=== PATIENT | female | born 1985 | race Hispanic/Latino ===

== ENCOUNTER 2016-06-22 11:43 | Emergency (ER) | payer SELFPAY ==
[~2016-06-22] VITALS: Ht 152.4 cm; Wt 73.9 kg
[~2016-06-22 11:43] MED LIST: CYCL10TA45 PO; HYOS0.1217 PO; NAPR-243 PO; NAPR250T2 PO; NAPR500T3 PO; OMEP20CA12 PO; ONDA-42 SL; PNT40TEC PO; TORADOL 10 MG PO; TRAM-42 PO
[2016-06-22] MEDS ORDERED: GABA-488 (12:23)
[2016-06-22 12:28] LABS: BILIRUBIN,URINE NEGATIVE (NEGATIVE); KETONES,URINE NEGATIVE (NEGATIVE); LEUKOCYTE ESTERASE ,URINE NEGATIVE (NEGATIVE); NITRITE,URINE NEGATIVE (NEGATIVE); PH,URINE 8 (5-9); PROTEIN,URINE NEGATIVE (NEGATIVE); UROBILINOGEN,URINE NORMAL (NORMAL)
[2016-06-22 12:36] LABS: SQUAMOUS EPITHELIAL CELL,UR >50 /HPF
[2016-06-22] MEDS ORDERED: NS 100 ML (IVPB) BAG IV ONE (12:45)
[2016-06-22] MEDS ORDERED: IOHEXOL 350 MG/ML 100 ML (OMNIPAQUE 350) VIAL IV ONE (12:45)
[2016-06-22] MEDS ORDERED: KETOROLAC 30 MG/ML VIAL IV ONE (12:45)
[2016-06-22 13:03] LABS: BASOPHILS % (AUTO) 1 % (0-10); EOSINOPHILS # (AUTO) 0.2 10^3/uL (0.0-0.3); EOSINOPHILS % (AUTO) 2 % (0-10); LYMPHOCYTES # (AUTO) 3.4 X 10^3 (1.0-4.0); LYMPHOCYTES % (AUTO) 41 % (12-44); MEAN CORPUSCULAR HEMOGLOBIN 28 PG (25-34); MEAN CORPUSCULAR HGB CONC 34 G/DL (32-36); MEAN CORPUSCULAR VOLUME 82 FL (80-99); MEAN PLATELET VOLUME 10.1 FL (7.4-10.4); MONOCYTES # (AUTO) 0.6 X 10^3 (0.0-1.0); MONOCYTES % (AUTO) 8 % (0-12); NEUTROPHILS % (AUTO) 49 % (42-75); PLATELET COUNT 292 10^3/uL (130-400); RED BLOOD COUNT 5.41 10^6/uL (4.35-5.85); RED CELL DISTRIBUTION WIDTH 12.7 % (10.0-14.5); WHITE BLOOD COUNT 8.2 10^3/uL (4.3-11.0)
--- NOTE | 2016-06-22 13:05 | ED Abdominal Pain ---
General Chief Complaint: -Female Stated Complaint: LOWER LEFT ABD PAIN Nursing Triage Note: AMB TO ROOM C/O L LOWER QUAD PAIN WITH C/O URINARY BURNING. 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[employer]) Exam Limitations: Language Barrier (PT SPEAKS NO CHADIAN) History of Present Illness Time Seen By Provider: 12:10 Initial Comments C/O PAIN TO ENTIRE LEFT ABDOMEN AND LEFT FLANK SINCE 0300 YESTERDAY MORNING PAIN COMES AND GOES AND IS MOSTLY WITH EATING OR DRINKING ANYTHING--NO PAIN NOW ATE CHICKEN SOUP AND WATER AT 0800 THIS AM + NAUSEA, NO VOMITING HAD A NORMAL BM AT 0700 TODAY C/O BURNING ON URINATION, URGENCY, FREQUENCY, SMALL AMOUNTS, SENSATION OF INCOMPLETE EMPTYING NO FEVER TOOK IBUPROFEN THIS AM WITHOUT RELIEF IS UNCLEAR IF SHE HAS HAD THIS PROBLEM IN THE PAST PT TAKES GABAPENTIN AND ANOTHER UNKNOWN MEDICATION FOR PAIN--IS UNCLEAR WHAT SHE TAKES THEM FOR, BUT RELATES THAT IS FOR ABDOMINAL PAIN HERE FOR WORK NOTE--DIDN'T GO TO WORK YESTERDAY OR TODAY PCP: KEVYN--HAS AN APPOINTMENT ON Monday06/27/16 FOR THIS PROBLEM Allergies and Home Medications Allergies Coded Allergies: Penicillins (Verified Allergy, Mild, 02/10/13) Home Medications Gabapentin 300 Mg Capsule, #90 (Reported) Review of Systems Constitutional: no symptoms reported Respiratory: No Symptoms Reported Cardiovascular: No Symptoms Reported Gastrointestinal: See HPI, Abdominal Pain, Denies Constipated, Denies Diarrhea , Nausea, Denies Vomiting Genitourinary: See HPI, Burning, Frequency, Flank Pain, Pain, Urgency Musculoskeletal: see HPI, back pain Skin: no symptoms reported Psychiatric/Neurological: No Symptoms Reported Endocrine: No Symptoms Reported Hematologic/Lymphatic: No Symptoms Reported Past Ixeacym-Betrvt-Nnzpxl Hx Patient Social History Alcohol Use: Denies Use Recreational Drug Use: No Smoking Status: Never a Smoker Recent Foreign Travel: No Contact w/Someone Who Travel: No Recent Infectious Disease Expo: No Surgeries HX Surgeries: Yes Surgeries: Hysterectomy Respiratory Hx Respiratory Disorders: No Cardiovascular Hx Cardiac Disorders: Yes Cardiac Disorders: High Cholesterol Neurological Hx Neurological Disorders: No Reproductive System Sexually Transmitted Disease: No 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 Genitourinary Hx Genitourinary Disorders: No Gastrointestinal Hx Gastrointestinal Disorders: Yes ("FATTY LIVER") Gastrointestinal Disorders: Liver Disease/Jaundice Musculoskeletal Hx Musculoskeletal Disorders: No Endocrine Hx Endocrine Disorders: No HEENT HX ENT Disorders: No Cancer Hx Cancer: No Psychosocial Hx Psychiatric Problems: No Integumentary HX Skin/Integumentary Disorder: No Blood Transfusions Hx Blood Disorders: No Physical Exam Vital Signs VS - Last 72 Hours, by Label 06/22/16 11:50 Temp 98.7 Pulse 72 Resp 18 B/P (MAP) 125/89 Pulse Ox 98 Capillary Refill : Less Than 3 Seconds General Appearance: WD/WN, no apparent distress HEENT: PERRL/EOMI, No scleral icterus (R), No scleral icterus (L) Neck: normal inspection Respiratory: normal breath sounds, no respiratory distress, no accessory muscle use Cardiovascular: normal peripheral pulses, regular rate, rhythm, no edema, no JVD, no murmur Gastrointestinal: normal bowel sounds, soft, no organomegaly, no pulsatile mass , No distended, No guarding, No rebound, tenderness (DIFFUSE LEFT SIDED ABDOMINAL TENDERNESS AND DIFFUSE LEFT FLANK TENDERNESS) Progress/Results/Core Measures Results/Orders Lab Results Laboratory Tests Test 06/22/16 12:02 06/22/16 12:53 Range/Units Urine Color YELLOW Urine Clarity CLEAR Urine pH 8 5-9 Urine Specific [place] 1.015 L 1.016-1.022 Urine Protein NEGATIVE NEGATIVE Urine Glucose (UA) NEGATIVE NEGATIVE Urine Ketones NEGATIVE NEGATIVE Urine Nitrite NEGATIVE NEGATIVE Urine Bilirubin NEGATIVE NEGATIVE Urine Urobilinogen NORMAL NORMAL MG/DL Urine Leukocyte Esterase NEGATIVE NEGATIVE Urine RBC (Auto) NEGATIVE NEGATIVE Urine RBC NONE /HPF Urine WBC NONE /HPF Urine Squamous Epithelial Cells >50 H /HPF Urine Crystals NONE /LPF Urine Bacteria NEGATIVE /HPF Urine Casts NONE /LPF Urine Mucus NEGATIVE /LPF Urine Culture Indicated NO White Blood Count 8.2 4.3-11.0 10^3/uL Red Blood Count 5.41 4.35-5.85 10^6/uL Hemoglobin 15.1 11.5-16.0 G/DL Hematocrit 44 35-52 % Mean Corpuscular Volume 82 80-99 FL Mean Corpuscular Hemoglobin 28 25-34 PG Mean Corpuscular Hemoglobin Concent 34 32-36 G/DL Red Cell Distribution Width 12.7 10.0-14.5 % Platelet Count 292 130-400 10^3/uL Mean Platelet Volume 10.1 7.4-10.4 FL Neutrophils (%) (Auto) 49 42-75 % Lymphocytes (%) (Auto) 41 12-44 % Monocytes (%) (Auto) 8 0-12 % Eosinophils (%) (Auto) 2 0-10 % Basophils (%) (Auto) 1 0-10 % Neutrophils # (Auto) 4.0 1.8-7.8 X 10^3 Lymphocytes # (Auto) 3.4 1.0-4.0 X 10^3 Monocytes # (Auto) 0.6 0.0-1.0 X 10^3 Eosinophils # (Auto) 0.2 0.0-0.3 10^3/uL Basophils # (Auto) 0.0 0.0-0.1 10^3/uL Sodium Level 141 135-145 MMOL/L Potassium Level 3.7 3.6-5.0 MMOL/L Chloride Level 104 98-107 MMOL/L Carbon Dioxide Level 27 21-32 MMOL/L Anion Gap 10 5-14 MMOL/L Blood Urea Nitrogen 12 7-18 MG/DL Creatinine 0.74 0.60-1.30 MG/DL Estimat Glomerular Filtration Rate > 60 BUN/Creatinine Ratio 16 Glucose Level 88 70-105 MG/DL Calcium Level 9.4 8.5-10.1 MG/DL Total Bilirubin 0.6 0.1-1.0 MG/DL Aspartate Amino Transf (AST/SGOT) 50 H 5-34 U/L Alanine Aminotransferase (ALT/SGPT) 105 H 0-55 U/L Alkaline Phosphatase 86 40-136 U/L Total Protein 7.6 6.4-8.2 G/DL Albumin 4.4 3.2-4.5 G/DL Amylase Level 69 25-125 U/L Lipase 45 8-78 U/L My Orders Orders - ALBERT ROCKWELL DO Ua Culture If Indicated (06/22/16 12:09) Saline Lock/Iv-Start (06/22/16 12:41) Ct Abdomen/Pelvis W (06/22/16 12:41) Amylase (06/22/16 12:41) Cbc With Automated Diff (06/22/16 12:41) Comprehensive Metabolic Panel (06/22/16 12:41) Lipase (06/22/16 12:41) Acute Abd Series (06/22/16 12:41) Ketorolac Injection (Toradol Injection) (06/22/16 12:45) Iohexol Injection (Omnipaque 350 Mg/Ml 1 (06/22/16 12:45) Ns (Ivpb) (Sodium Chloride 0.9% Ivpb Bag (06/22/16 12:45) Medications Given in ED Current Medications Medications Dose Ordered Sig/Mathieu Route Start Time Stop Time Status Last Admin Dose Admin Iohexol 100 ml ONCE ONCE IV 06/22/16 12:45 06/22/16 12:46 DC 06/22/16 13:27 100 ML Ketorolac Tromethamine 30 mg ONCE ONCE IV 06/22/16 12:45 06/22/16 12:46 DC 06/22/16 13:04 30 MG Sodium Chloride 100 ml ONCE ONCE IV 06/22/16 12:45 06/22/16 12:46 DC 06/22/16 13:27 80 ML Vital Signs/I&O Vital Sign - Last 12Hours 06/22/16 11:50 Temp 98.7 Pulse 72 Resp 18 B/P (MAP) 125/89 Pulse Ox 98 Blood Pressure Mean: 101 Diagnostic Imaging Comments ACUTE ABDOMEN XRAYS--MILD TO MODERATE FECAL LOADING, MILD HEPATOMEGALY CT ABDOMEN/PELVIES--NO ACUTE PROCESS, LEFT ADNEXAL OVARIAL FOLLICLE, HEPATIC STEATOSIS PER RADIOLOGIST REPORT @ 1430 Reviewed: Reviewed by Me Departure Impression Impression: Primary Impression: Left sided abdominal pain of unknown cause Additional Impressions: LEFT FLANK PAIN OF UNKNOWN CAUSE Constipation Fatty liver Disposition: 01 HOME, SELF-CARE Condition: Stable Departure-Patient Inst. Referrals: [facility] (PCP/Family) Primary Care Physician Patient Instructions: Acute Abdomen (Belly Pain), Adult (DC), Constipation, Adult (DC), Flank Pain (DC), High Fiber Diet, Nonalcoholic Fatty Liver Disease ( DC) Add. Discharge Instructions: MOIST HEAT TO SORE AREA AT 20 MINUTE INTERVALS CLEAR LIQUIDS UNTIL YOU HAVE A LARGE BOWEL MOVEMENT--NO FOOD FOLLOW UP WITH [facility] IN 2-3 DAYS IF NO BETTER All discharge instructions reviewed with patient and/or family. Voiced understanding. Scripts Orphenadrine Citrate (Orphenadrine Citrate) 100 Mg Tablet.er 100 MG PO BID, #14 TAB FOR MUSCLE SPASMS Prov: ALBERT ROCKWELL DO 06/22/16 Ketorolac Tromethamine (Ketorolac Tromethamine) 10 Mg Tablet 10 MG PO Q6H for Pain, #15 TAB Prov: ALBERT ROCKWELL DO 06/22/16 Work/School Note: Work Release Form Date Seen in the Emergency Department: June 22, 2016 Return to Work: June 23, 2016 Restrictions: No Restrictions ALBERT ROCKWELL DO June 22, 2016 13:05
[2016-06-22 13:19] LABS: ALANINE AMINOTRANSFERASE 105 U/L (0-55); ALBUMIN 4.4 G/DL (3.2-4.5); AMYLASE 69 U/L (25-125); ANION GAP 10 MMOL/L (5-14); ASPARTATE AMINO TRANSFERASE 50 U/L (5-34); BILIRUBIN,TOTAL 0.6 MG/DL (0.1-1.0); BLOOD UREA NITROGEN 12 MG/DL (7-18); BUN/CREATININE RATIO 16; CALCIUM 9.4 MG/DL (8.5-10.1); CARBON DIOXIDE 27 MMOL/L (21-32); CHLORIDE 104 MMOL/L (98-107); CREATININE SERUM 0.74 MG/DL (0.60-1.30); GFR ESTIMATED > 60; GLUCOSE 88 MG/DL (70-105); LIPASE 45 U/L (8-78); POTASSIUM 3.7 MMOL/L (3.6-5.0); SODIUM 141 MMOL/L (135-145); TOTAL PROTEIN 7.6 G/DL (6.4-8.2)
--- NOTE | 2016-06-22 13:30 | Diagnostic Imaging Report ---
EXAMINATION: Acute abdominal series. INDICATION: Left upper quadrant pain. FINDINGS: A PA view of the chest demonstrates clear lungs and normal size of the heart. No pneumothorax or pleural effusion. No dilated bowel loops or significant air/fluid levels are seen to suggest obstruction. No air/fluid levels. There is a small to moderate amount of fecal material in the colon. No suspicious calcification. The liver appears prominent. IMPRESSION: Small to moderate amount of fecal material in the colon. Suggestion of hepatic enlargement. Dictated by: Dictated on workstation # [id number]
--- NOTE | 2016-06-22 14:09 | Diagnostic Imaging Report ---
PROCEDURE: CT abdomen and pelvis with contrast. TECHNIQUE: Multiple contiguous axial images were obtained through the abdomen and pelvis after administration of intravenous contrast. INDICATION: Left lower quadrant pain. Left flank pain. COMPARISON: 10/26/14. FINDINGS: The lung bases appear clear. There is diffuse hepatic steatosis. The gallbladder, the pancreas, the spleen, and the adrenal glands appear unremarkable. The kidneys have symmetric contrast enhancement and excretion. There is no hydronephrosis. The abdominal aorta is normal in caliber. No para-aortic significantly enlarged lymph node is seen. Small nodules adjacent to the spleen are probably splenules. There is no significant free fluid or fluid collection in the abdomen or pelvis seen. No bowel obstruction. The appendix is normal. There is suggestion of prior hysterectomy. Fluid attenuation lesions in the left adnexa up to 2.5 cm are probably related to prominent ovarian follicles. The osseous structures demonstrate no significant degenerative changes. IMPRESSION: 1. Slightly prominent fluid-attenuation lesions in the left adnexa are likely related to prominent ovarian follicles. 2. Hepatic steatosis. Dictated by: Dictated on workstation # [id number]
[2016-06-22] MEDS ORDERED: KETO10TA PO (14:35)
[2016-06-22] MEDS ORDERED: ORPH100T PO (14:35)
[2016-06-22 14:48] VITALS: BP 125/89
== END 2016-06-22 14:48 | disposition home or self-care (01) ==
LOC: EDUNIT# 11:43 → ER 11:47
DX: R10.32 Left lower quadrant pain (principal); R30.0 Dysuria; K76.0 Fatty (change of) liver, not elsewhere classified; K59.00 Constipation, unspecified
CPT/HCPCS: 36415; 74022; 74177; 80053; 81000; 82150; 83690; 85025; 96374

== ENCOUNTER → 2016-08-12 | Outpatient (CLI) | payer OTHER ==
[~2016-08-12] MED LIST changes: +GABA-488; +KETO10TA PO; +ORPH100T PO
--- NOTE | 2016-08-12 10:01 | Diagnostic Imaging Report ---
Bilateral diagnostic mammogram. CAD is utilized. The current study was also evaluated with a Computer Aided Detection (CAD) system. INDICATION: Bilateral breast pain. No prior studies are available for comparison. This is a baseline exam. FINDINGS: The breast parenchyma is heterogeneously dense which may decrease mammographic sensitivity. There is an asymmetry along the upper aspect of the right breast which is evaluated with focal compression views demonstrate no definite underlying lesion in favor of summation artifact of parenchyma. There is an intramammary lymph node in the axillary tail of the right breast. IMPRESSION: Dense breasts. Upper right breast asymmetry is favored to be summation artifact of parenchyma. Ultrasound evaluation pending. BI-RADS 0. ACR BI-RADS Category 0: Incomplete. (Needs additional imaging evaluation). Result letter will be mailed to the patient. Note: At least 10% of breast cancer is not imaged by mammography. Dictated by: Dictated on workstation # [id number]
--- NOTE | 2016-08-12 20:18 | Diagnostic Imaging Report ---
Bilateral breast ultrasound. INDICATION: Breast pain. FINDINGS: The left breast demonstrates at 2 o'clock zone a minimally complicated cyst measuring 1 cm with thin internal septation and no internal vascularity. This is located 5 cm from the nipple. The four quadrants and retroareolar region on the left and also in the right breast demonstrate no other abnormality. IMPRESSION: No significant abnormality. Clinical followup for breast pain complaints is recommended. ACR BI-RADS Category 2: Benign findings. Dictated by: Dictated on workstation # [id number]
== END ==
LOC: RAD 09:18
PROVIDERS: ATTEND Nurse Practitioner Adult Health
DX: N64.4 Mastodynia (principal)
CPT/HCPCS: 77066

== ENCOUNTER → 2017-01-03 | Outpatient (CLI) | payer SELFPAY ==
[~2017-01-03] MED LIST changes: -NAPR250T2 PO; +NAPR250T6 PO; -NAPR500T3 PO; +NAPR500T4 PO
--- NOTE | 2017-01-03 16:42 | Diagnostic Imaging Report ---
Transabdominal and transvaginal pelvic ultrasound. INDICATION: Pelvic pain. History of hysterectomy. FINDINGS: The hysterectomy bed demonstrates no definite solid mass. There is a cystic structure measuring 1.3 x 1.5 x 0.9 cm however near the hysterectomy bed medial to the right ovary which could be an adnexal cyst or related to postsurgical seroma. The right ovary is 4 x 2.4 x 3.4 cm. The left ovary is 3.4 x 3.8 x 2 cm. There is arterial and venous waveform demonstrated in both ovaries. Bilateral prominent but simple-appearing follicles are seen in the ovaries up to 2.5 cm on the left and 2.3 cm on the right side with no solid mass identified. IMPRESSION: Nonspecific prominent ovarian follicles are seen. There is also suggestion of a small extraovarian cystic structure, probably a seroma or adnexal cyst seen medial to the right ovary. Dictated by: Dictated on workstation # [id number]
== END ==
LOC: RAD 15:34
PROVIDERS: ATTEND Family Medicine
DX: R93.8 Abnormal findings on diagnostic imaging of other specified body structures (principal); R10.2 Pelvic and perineal pain; Z90.710 Acquired absence of both cervix and uterus
CPT/HCPCS: 76830; 76856

== ENCOUNTER → 2017-07-28 | Outpatient (CLI) | payer SELFPAY ==
[~2017-07-28] MED LIST changes: +NAPR-915 PO; -NAPR500T4 PO
--- NOTE | 2017-07-28 11:34 | Diagnostic Imaging Report ---
PROCEDURE: US Gallbladder. TECHNIQUE: Multiple real-time grayscale images were obtained over the right upper quadrant in various projections. INDICATION: Epigastric pain. The liver is enlarged at 20.2 cm. No discrete liver mass is identified. There may be some mild increased echogenicity suggestive of hepatic steatosis. Gallbladder is without stones or sludge. No wall thickening or pericholecystic fluid is seen. There is no biliary duct dilatation. Visualized pancreas unremarkable. Right kidney is unremarkable. There is no ascites. IMPRESSION: Mild hepatomegaly and hepatic steatosis. No other significant abnormality is detected. Dictated by: Dictated on workstation # [id number]
== END ==
LOC: RAD 09:19
PROVIDERS: ATTEND Nurse Practitioner Primary Care
DX: K76.0 Fatty (change of) liver, not elsewhere classified (principal)
CPT/HCPCS: 76705

== ENCOUNTER → 2018-03-26 | Outpatient (CLI) | payer SELFPAY ==
[~2018-03-26] MED LIST changes: +CATHETER FLUSH 10 ML SYR IV PRN; +IOHEXOL 350 MG/ML 100 ML (OMNIPAQUE 350) VIAL IV ONE; +NS 100 ML (IVPB) BAG IV ONE; +RECEIVED CONTRAST (Hold Metformin) IV SCH
[2018-03-26 11:46] LABS: BASOPHILS % (AUTO) 0 % (0-10); EOSINOPHILS # (AUTO) 0.2 10^3/uL (0.0-0.3); EOSINOPHILS % (AUTO) 2 % (0-10); HEMATOCRIT 44 % (35-52); LYMPHOCYTES # (AUTO) 2.3 X 10^3 (1.0-4.0); LYMPHOCYTES % (AUTO) 36 % (12-44); MEAN CORPUSCULAR HEMOGLOBIN 27 PG (25-34); MEAN CORPUSCULAR HGB CONC 34 G/DL (32-36); MEAN CORPUSCULAR VOLUME 81 FL (80-99); MEAN PLATELET VOLUME 9.8 FL (7.4-10.4); MONOCYTES # (AUTO) 0.5 X 10^3 (0.0-1.0); MONOCYTES % (AUTO) 9 % (0-12); NEUTROPHILS # (AUTO) 3.4 X 10^3 (1.8-7.8); NEUTROPHILS % (AUTO) 53 % (42-75); PLATELET COUNT 282 10^3/uL (130-400); WHITE BLOOD COUNT 6.4 10^3/uL (4.3-11.0)
[2018-03-26 12:23] LABS: BAND NEUTROPHILS 0 %; BASOPHILS % (MANUAL) 0 %; EOSINOPHILS % (MANUAL) 3 %; LYMPHOCYTES % (MANUAL) 40 %; MONOCYTES % (MANUAL) 8 %; NEUTROPHILS % (MANUAL) 49 %; RBC MORPH NORMAL
--- NOTE | 2018-03-26 12:39 | Diagnostic Imaging Report ---
PROCEDURE: CT abdomen and pelvis with contrast. TECHNIQUE: Multiple contiguous axial images were obtained through the abdomen and pelvis after administration of intravenous contrast. INDICATION: Right-sided pain. COMPARISON: 06/22/2016. FINDINGS: The lung bases are clear. There is mild hepatic steatosis similar in magnitude from the prior. The gallbladder and bile ducts are normal. The pancreas, its duct, and the peripancreatic fat are normal. The spleen is unremarkable. There is no adrenal mass. Kidneys are normal and unobstructed. There is no hydronephrosis. There is a large left adnexal cyst presumed ovarian measuring 4.4 x 4.4 cm, previously measuring 2.5 cm. There is a small amount of adjacent left adnexal free fluid. There are no findings of appendicitis or diverticulitis. The urinary bladder was largely empty. No ascites. No pneumatosis or free gas. The osseous structures are nonacute. IMPRESSION: Large left ovarian cyst with small amount of adjacent free fluid. The remaining solid and hollow viscera unremarkable aside from mild chronic hepatic steatosis. ] Dictated by: Dictated on workstation # [id number]
== END ==
LOC: RAD 11:35
PROVIDERS: ATTEND Nurse Practitioner Primary Care
DX: K76.0 Fatty (change of) liver, not elsewhere classified (principal); N83.202 Unspecified ovarian cyst, left side
CPT/HCPCS: 36415; 74177; 85007; 85027